=== PATIENT | female | born 1955 | race Caucasian/White ===

== ENCOUNTER 2025-07-17 08:34 | Outpatient (REF) | payer MEDICARE, SELFPAY ==
[2025-07-17 13:47] LABS: Albumin Level 4.4 g/dL (3.5-5.0); Calcium 10.2 mg/dL (8.4-10.2)
[2025-07-17 13:53] LABS: Parathyroid Hormone Intact 40.7 pg/mL (8.7-77.1)
[2025-07-18 08:29] LABS: Estimated Glomerular Filt Rate 59
== END 2025-07-17 08:35 | disposition home or self-care (01) ==
LOC: HO.HKASLDS 08:34
PROVIDERS: PCP Nurse Practitioner Family; Visit Provider Internal Medicine Rheumatology
DX: M81.0 Age-related osteoporosis without current pathological fracture (principal); Z79.891 Long term (current) use of opiate analgesic; Z79.1 Long term (current) use of non-steroidal anti-inflammatories (NSAID)
CPT/HCPCS: 36415; 82040; 82306; 82310; 82565; 83970; 99212

== ENCOUNTER 2025-07-17 08:34 | Outpatient (AMB) | payer MEDICARE, OTHER, SELFPAY ==
--- OUTSIDE RECORDS SUMMARY | 2024-02-15 05:00 | XMS_ITS ---
Author Organization [facility] Address [address] [place] [address] Care Team Providers Care Service Unit Operator Oil Well Name Role Phone JIMENEZ COCHRAN M.D. Primary Care Provider Unavail Kathy Sesay [phone] Allergies Allergen (clinical drug ingredient) Drug/Non Drug Allergy documented on EMR Reaction Allergy Type Onset Date Status naproxen NAPROSYN Unknown Drug Allergy Active fluoxetine PROZAC Unknown Drug Allergy Active lisinopril ZESTRIL Unknown Drug Allergy Active COMPAZINE Unknown Drug Allergy Active Penicillin Unknown Drug Allergy Active REASON FOR VISIT HR MEDICARE PE (YELLOW FORM DONE) Encounters Encounter Location Date Provider Diagnosis [address] [address] 02/15/2024 Kathy Beavers Plan Of Treatment No Information Progress Notes * LITO BESTDOB:1955 (70 yo F)Acc No.[id number]:02/15/2024 PROGRESS NOTES Patient: LITO VIEYRA Appointment Provider: Gautam Beavers M.D. :1955 A ge:69 Y S ex:Female Date:02/15/2024 Address:[address] [place], [place] [id number] Pcp:JIMENEZ COCHRAN M.D. Subjective: * Chief Complaints: * 1 . HR MEDICARE PE (YELLOW FORM DONE). * Medical History: U nspecified asthma, uncomplicated, Major depressive disorder, single episode, unspecified, Essential (primary) hypertension, Menopausal and female climacteric states, Hyperprolactinemia, Unspecified osteoarthritis, unspecified site, Cerebral infarction, unspecified, Postmenopausal atrophic vaginitis. * Agency Sales Representative History: Noe bhaktaida/ Para 3 /3. S [...] Electronic signature of Lulu Beavers MD on 07/17/2025 at 09:14 AM EDT Sign off status: Pending * Appointment Provider: Gautam Beavers M.D. Date: 02/15/2024 Generated for Scooter charles/Byron/Akikoitting on: 07/17/2025 09:14 AM EDT
--- NOTE | 2025-07-17 08:51 | A.OFFVIS_ITS ---
Vital Signs 07/17/25 08:53 Height 5 ft 2 in Weight 242 lb 8 oz BMI 44.3 BP 128/64 Blood Pressure Location Lt brachial Position Sitting Pulse 81 Pulse Source Pulse Oximeter Pulse Oximetry (%) 97 Oxygen Delivery Method Room Air Intake Visit Reasons: follow up Intake Note: Patient presents today for osteoporosis. Allergies fluoxetine (From Prozac) Allergy (Mild, Verified 07/06/25 13:09) Rash lisinopril (From Zestril) Allergy (Mild, Verified 07/06/25 13:09) sob naproxen Allergy (Mild, Verified 07/06/25 13:09) Shortness of Breath Penicillins Allergy (Mild, Verified 07/06/25 13:09) Swelling prochlorperazine (From Compazine) Allergy (Mild, Verified 07/06/25 13:09) Hives HPI HPI follow up: Details: Reclast x2 last dose March 2024. Bone density at [facility] was performed last year. She had recurrent dental abscess last winter with two teeth extracted. She saw dentist's a month ago without any new findings. [facility] - she was seeing them for PT for cervical OA. She had acute onset severe scapular pain. She was on ibuprofen, oxycodone and muscle relaxer prescribed by [facility]. She then woke up with numbness in right hand a week after presenting to ER twice. She was prescribed 7 day course prednisone with benefit. SHe will be s e[facility]. [facility] Medical History (Updated 07/17/25 @ 09:49 by Steven Manning MD) History of mammogram RSV (acute bronchiolitis due to respiratory syncytial virus) Brainstem stroke Fx. left wrist Bilateral carpal tunnel syndrome Osteoporosis Asthenia Hypertension Surgical History (Updated 07/17/25 @ 09:12 by Alisson Crenshaw CMA) History of right knee joint replacement Hx of colonoscopy Social History Household Members: Spouse Alcohol intake: never Tobacco use type: Smokeless Tobacco Current occupational status: retired Current occupation: retired RN. Physical Exam Vital Signs: Last Vital Signs Pulse 81 07/17/25 08:53 BP 128/64 07/17/25 08:53 Pulse Ox 97 07/17/25 08:53 Oxygen Delivery Method Room Air 07/17/25 08:53 BMI result Body Mass Index 44.3 Const Other: General: Comfortable, tremors seen in bilateral hands and arms CVS: RRR Respiratory: clear to auscultation bilaterally. Good respiratory effort Skin: No lesions seen MSK: No synovitis. No tender joints. Normal range of motion of upper extremities and lower extremities. Normal cervical range of motion. Normal lumbar flexion. Assessment & Plan Assessment & Plan (1) Osteoporosis: Comment: With prior treatment on Fosamax and Reclast x2. We discuss next steps in treatment with obtaining bone density reports from [facility]. She had last bone density last year. She missed Reclast this year. Code(s): M81.0 - Age-related osteoporosis without current pathological fracture Category: Medical Qualifiers: Osteoporosis type: age-related Plan: Labs ordered prior to Reclast Bone densities from [facility] requested After reviewing above, I will plan to have patient have Reclast at [facility] Continue calcium intake from diet Continue vitamin-D 1000 IU daily plus multivitamin daily (600 IU and 250 mg calcium) Return to clinic in 6 months Orders: Orders Calcium Today M81.0 - Age-related osteoporosis without current pathological fracture Albumin Level Today M81.0 - Age-related osteoporosis without current pathological fracture Parathyroid Hormone Intact Today M81.0 - Age-related osteoporosis without current pathological fracture Vitamin D 25-OH Total Today M81.0 - Age-related osteoporosis without current pathological fracture Collagen Type I C-Telopeptide 6 Months M81.0 - Age-related osteoporosis without current pathological fracture Alkaline Phosphatase Bone 6 Months M81.0 - Age-related osteoporosis without current pathological fracture Coding Level of Care Code Est Pt Level 4 (08302) Complex EM visit Add On G2211 Diagnoses Osteoporosis M81.0 Osteoporosis type: age-related
[2025-07-17 08:53] VITALS: BP 128/64; PULSE 81; O2SAT 97; BMI 44.3
--- OUTSIDE RECORDS SUMMARY | 2025-07-17 09:14 | XMS_ITS | Patient Health Record ---
Author Organization [email or web address] [facility] Address [address] [place] [address] Care Team Providers Care Dressage Instructor Name Role Phone JIMENEZ COCHRAN M.D. Primary Care Provider Unavail able Kathy Beavers Unavailable [phone] Allergies Allergen (clinical drug ingredient) Drug/Non Drug Allergy documented on EMR Reaction Allergy Type Onset Date Status naproxen NAPROSYN Unknown Drug Allergy Active fluoxetine PROZAC Unknown Drug Allergy Active lisinopril ZESTRIL Unknown Drug Allergy Active COMPAZINE Unknown Drug Allergy Active Penicillin Unknown Drug Allergy Active Reason For Referral No Information Medications Medication SIG (Take, Route, Frequency, Duration) Notes Start Date End Date Status Spironolactone 25 MG TAKE ONE TABLET BY MOUTH TWICE A DAY Oral; Duration: 30 Active Aspirin 81 MG 1 tablet Orally Once a day Active Citalopram Hydrobromide 20 MG TAKE ONE TABLET BY MOUTH EVERY DAY Oral; Duration: 30 Active Ibuprofen 800 MG 1 tablet with food o r milk as needed Orally twice a day Active Flovent as needed [facility] 12/26/2011 Active Multi-Vitamin - 1 tablet Orally Once a day; Duration: 30 day(s) Active ZyrTEC Allergy 10 MG 1 tablet Orally Onc e a day Active traZODone HCl 150 MG 1 Orally at bedtime [facility] 2 Active ProAir HFA 108 (90 Base) MCG/ACT 2 puffs as needed Inhalation Active Montelukast Sodium 10 MG 1 tablet in the evening Orally Once a day Active Lasix 20 MG 1 tablet Orally Once a day; Duration: 30 day(s) Active Losartan Potassium 100 MG 1 tablet Orall y Once a day; Duration: 30 day(s) Active Social History Tobacco Use: Social History Observation Description Date Details (start date - stop date) Never Smoker NA - NA Tobacco Use/Smoking Question Answer Notes Are you a nonsmoker Alcohol Screen (Audit-C) Question Answer Notes Did you have a drink contain ing alcohol in the past year? Yes How often did you have a dri nk containing alcohol in the past year? 2 to 4 times a month (2 points) How many drinks did you have on a typical day when you were drinking in the past year? 1 or 2 drinks (0 point) Points 2 Interpretation Negative Section Notes: Problems Problem Type SNOMED Code ICD Code Onset Dates Problem Status W/U Status Risk Notes Problem Age-related osteoporosis (360856164) Age-related osteoporosis without current pathological fracture (M81.0) Active confirmed Problem Urinary incontinence (605179070) Unspecified urinary incontinence (R32) Active confirmed Problem Morbid obesity (disorder) (843478117) Morbid (severe) obesity due to excess calories (E66.01) Active confirmed Problem Hypervitaminosis D (06591741) Hypervitaminosis D (E67.3) Active confirmed Problem Depressive disorder (51319123) Depressive disorder, not elsewhere classified (311) Active confirmed Major Problem Essential hypertension (50500552) Unspecified essential hypertension (401.9) Active confirmed Major Problem Asthma (disorder) (915092674) Asthma, unspecified, unspecified status (493.90) Active confirmed Major Problem Menopausal symptom (18284913) Symptomatic menopausal or female climacteric states (627.2) Active confirmed Major Problem Gynecological examination normal (768495254017690) Routine gynecological examination (V72.31) Active confirmed Major Problem Screening for malignant neoplasm of colon (016839332) Special screening for malignant neoplasms, colon (V76.51) Active confirmed Major Plan Of Treatment Pending Test Test Name Order Date MAMMOGRAM, SCREENING 12/13/2014 MAMMOGRAM, SCREENING 01/13/2016 25OH VITAMIN D 12/30/2018 COMPREHENSIVE METABOLIC PANEL 12/30/2018 N-TELOPEPTIDE CROSS 12/30/2018 PTH, INTACT 12/30/2018 TSH 12/30/2018 Insurance Providers Payer Name Payer Address Payer Phone Subscriber Number Group Number Insured Name Patient Relationship to Insured Coverage Start Date Coverage End Date [employer] MEDICARE ADVANTAGE [facility] [address] [facility] [place] [id number] [phone] LITO BEST Self - patient is the insured Medical (General) History Medical History History ICD Code Unspecified asthma, uncomplicated J45.90 9 Major depressive disorder, single episod e, unspecified F32.9 Essential (primary) hypertension I10 Menopausal and female climacteric states N95.1 Hyperprolactinemia E22.1 Unspecified osteoarthritis, unspecified site M19.90 Cerebral infarction, unspecified I63.9 Postmenopausal atrophic vaginitis N95.2 Surgical History Surgery Date(Month/Year) Tonsillectomy [place] Teeth Extraction x 1 Bilateral Carpal Tunnel Surgery Endometrial Ablation Left Wrist Fracture Repair Right Knee Replacement 05/2016 Vulvar Biopsy 01/2017 Colonoscopy 2013 Hospitalization History Reason Date(Month/Year) See Surgical Hx Brainstem Stroke 12/23/14 2 Vaginal Deliveries Deconditioning and Balance Problems x 2
--- OUTSIDE RECORDS SUMMARY | 2025-07-17 09:14 | XMS_ITS | Clinical Summary ---
Author Organization [facility] Address [address] [place] [address] Care Team Providers Care Book Coverer Name Role Phone Unavailable Primary Care Provider Unavailabl e Social History Tobacco Use Types Packs/Day Years Used Date Smoking Tobacco: Never Assessed Comments Unknown Sex and Gender Information Value Date Recorded Sex Assigned at Not on file Legal Sex Female 5:26 AM EST Gender Identity Not on file Sexual Orientation Not on file Plan of Treatment Health Maintenance Due Date Last Done Comments Breast Cancer Screening 1955 DTaP,Tdap,and Td Vaccines (1 - Tdap) 1975 Pneumococcal Vaccine: 50+ Ye ars (1 of 1 - PCV) 2006 Zoster Vaccines (1 of 2) 2006 Colorectal Cancer Screening: Colonoscopy 10/18/2022 Falls Risk Assessment 10/18/2022 Hepatitis C Screening 10/18/2022 Osteoporosis Screening (Bone Density Screening) 10/18/2022 Social Influencers of Health Screening 10/18/2022 Depression Screening 11/15/2024 COVID-19 Vaccine (1 - 2023-2 5 season) 2025 Influenza Vaccine (#1) 2025 RSV Immunization Adult Patie nts (1 - 1-dose 75+ series) 2031 HIB Vaccines Aged Out No longer eligi ble based on patient's age to complete this topic HPV Vaccines Aged Out No longer eligi ble based on patient's age to complete this topic Hepatitis A Vaccines Aged Out No long er eligible based on patient's age to complete this topic Hepatitis B Vaccines Aged Out No long er eligible based on patient's age to complete this topic IPV Vaccines Aged Out No longer eligi ble based on patient's age to complete this topic MMR Vaccines Aged Out No longer eligi ble based on patient's age to complete this topic Meningococcal ACWY Vaccine Aged Out N o longer eligible based on patient's age to complete this topic Meningococcal B Vaccine Aged Out No l onger eligible based on patient's age to complete this topic RSV Immunization Patients Un tory 20 months Aged Out No longer eligible b ased on patient's age to complete this topic Varicella Vaccines Aged Out No longer eligible based on patient's age to complete this topic
== END 2025-07-17 10:11 | disposition home or self-care (01) ==
PROVIDERS: PCP Nurse Practitioner Family; Visit Provider Internal Medicine Rheumatology
DX: M81.0 Age-related osteoporosis without current pathological fracture (principal)
CPT/HCPCS: 99214; G2211

== ENCOUNTER 2025-08-13 13:30 | Outpatient (REF) | payer MEDICARE, SELFPAY ==
--- OUTSIDE RECORDS SUMMARY | 2024-02-15 05:00 | XMS_ITS ---
Author Organization [facility] Address [address] [place] [address] Care Team Providers Care Trencher Driver Name Role Phone JIMENEZ COCHRAN M.D. Primary Care Provider Unavail Kathy Sesay [phone] Allergies Allergen (clinical drug ingredient) Drug/Non Drug Allergy documented on EMR Reaction Allergy Type Onset Date Status naproxen NAPROSYN Unknown Drug Allergy Active fluoxetine PROZAC Unknown Drug Allergy Active lisinopril ZESTRIL Unknown Drug Allergy Active COMPAZINE Unknown Drug Allergy Active Penicillin Unknown Drug Allergy Active REASON FOR VISIT HR MEDICARE PE (YELLOW FORM DONE) Encounters Encounter Location Date Provider Diagnosis [address] [address] 02/15/2024 Kathy Beavers Plan Of Treatment No Information Progress Notes * LIOT BESTDOB:1955 (70 yo F)Acc No.[id number]:02/15/2024 PROGRESS NOTES Patient: LITO VIEYRA Appointment Provider: Gautam Beavers M.D. :1955 A ge:69 Y S ex:Female Date:02/15/2024 Address:[address] [place], [place] [id number] Pcp:JIMENEZ COCHRAN M.D. Subjective: * Chief Complaints: * 1 . HR MEDICARE PE (YELLOW FORM DONE). * Medical History: U nspecified asthma, uncomplicated, Major depressive disorder, single episode, unspecified, Essential (primary) hypertension, Menopausal and female climacteric states, Hyperprolactinemia, Unspecified osteoarthritis, unspecified site, Cerebral infarction, unspecified, Postmenopausal atrophic vaginitis. * Patient Office Rep History: Noe bhaktaida/ Para 3 /3. S exual activity n ot currently sexually active. L ast Pap Smear: NIL, NEG HPV, 01/13/16 NEG HRHPV, 04/2013. M ammogram: 1 12/01/22 < 50% density, 12/26/18 < 50% density, 07/12/17 < 50% density, 12/05/14, < 50% density. L MP and menses M davide 2006 (Ablation). B irth Control: N one. C olonoscopy 1 11/2013. B one Density: , 03/2012. * OB History: T otal pregnancies 3 . T otal living children 3 . N VD 2 . C -section(s) 1 . * Allergies: N APROSYN: Allergy, PROZAC: Allergy, ZESTRIL: Allergy, COMPAZINE: Allergy, Penicillin: Allergy. Objective: * Vitals: Assessment: Plan: * Treatment: * Images: Billing Information: * Visit Code: * Procedure Codes: * Electronic signature of Lulu Beavers MD on 08/13/2025 at 03:02 PM EDT Sign off status: Pending * Appointment Provider: Gautam Beavers M.D. Date: 02/15/2024 Generated for Scooter charles/Byron/Akikoitting on: 08/13/2025 03:02 PM EDT
--- OUTSIDE RECORDS SUMMARY | 2025-08-13 15:02 | XMS_ITS | Clinical Summary ---
Author Organization [facility] Address [address] [place] [address] Care Team Providers Care Tariff Inspector Name Role Phone Unavailable Primary Care Provider [...]
--- OUTSIDE RECORDS SUMMARY | 2025-08-13 15:02 | XMS_ITS | Patient Health Record ---
Author Organization [facility] Address [address] [place] [address] Care Team Providers Care High Voltage Electrician Name Role Phone JIMENEZ COCHRAN M.D. Primary Care Provider Unavail able Kathy Beavers Unavailable [phone] Allergies Allergen (clinical drug ingredient) Drug/Non Drug [...] twice a day Active Flovent as needed [facility] 12/26/2011 Active Multi-Vitamin - 1 tablet Orally Once a day; Duration: 30 day(s) Active ZyrTEC Allergy 10 MG 1 tablet Orally Onc e a day Active traZODone HCl 150 MG 1 Orally at bedtime [facility] 2 Active ProAir HFA 108 (90 [...] W/U Status Risk Notes Problem Age-related osteoporosis (301862742) Age-related osteoporosis without current pathological fracture (M81.0) Active confirmed Problem Urinary incontinence (247253855) Unspecified urinary incontinence (R32) Active confirmed Problem Morbid obesity (disorder) (348549114) Morbid (severe) obesity due to excess calories (E66.01) Active confirmed Problem Hypervitaminosis D (32959808) Hypervitaminosis D (E67.3) Active confirmed Problem Depressive disorder (61037093) Depressive disorder, not elsewhere classified (311) Active confirmed Major Problem Essential hypertension (11210386) Unspecified essential hypertension (401.9) Active confirmed Major Problem Asthma (disorder) (455445255) Asthma, unspecified, unspecified status (493.90) Active confirmed Major Problem Menopausal symptom (30779463) Symptomatic menopausal or female climacteric states (627.2) Active confirmed Major Problem Gynecological examination normal (084099528805660) Routine gynecological examination (V72.31) Active confirmed Major Problem Screening for malignant neoplasm of colon (922569247) Special screening for malignant neoplasms, colon (V76.51) Active confirmed Major Plan Of Treatment Pending Test Test Name Order Date MAMMOGRAM, SCREENING 01/13/2016 MAMMOGRAM, SCREENING 12/13/2014 25OH VITAMIN D 12/30/2018 COMPREHENSIVE METABOLIC PANEL 12/30/2018 N-TELOPEPTIDE CROSS 12/30/2018 PTH, INTACT 12/30/2018 TSH 12/30/2018 Insurance Providers Payer Name Payer Address Payer Phone Subscriber Number Group Number Insured Name Patient Relationship to Insured Coverage Start Date Coverage End Date [employer] MEDICARE ADVANTAGE [facility] [address] [facility] [place] [id number] LITO BEST Self - patient is the insured Medical (General) History Medical History History ICD Code Unspecified asthma, uncomplicated J45.90 9 Major depressive disorder, single episod e, unspecified F32.9 Essential (primary) hypertension I10 Menopausal and female climacteric states N95.1 Hyperprolactinemia E22.1 Unspecified osteoarthritis, unspecified site M19.90 Cerebral infarction, unspecified I63.9 Postmenopausal atrophic vaginitis N95.2 Surgical History Surgery Date(Month/Year) Tonsillectomy [place] Teeth Extraction x 1 Bilateral Carpal Tunnel Surgery Endometrial Ablation Left Wrist Fracture Repair Right Knee Replacement 05/2016 Vulvar Biopsy 01/2017 Colonoscopy 2013 Hospitalization History Reason Date(Month/Year) See Surgical Hx Brainstem Stroke 12/23/14 2 Vaginal Deliveries Deconditioning and Balance Problems x 2
[2025-08-13 18:11] LABS: Estimated Glomerular Filt Rate > 60
[2025-08-17 13:49] LABS: Vitamin D 25-OH, D2 <4 ng/mL; Vitamin D 25-OH, D3 44 ng/mL; Vitamin D 25-OH, Total 44 ng/mL (30-100)
== END 2025-08-13 13:31 | disposition home or self-care (01) ==
LOC: HO.HKASLDS 13:30
PROVIDERS: Visit Provider Internal Medicine Rheumatology
DX: M81.0 Age-related osteoporosis without current pathological fracture (principal)
CPT/HCPCS: 36415; 82306; 82565